=== PATIENT | male | born 1985 | race Asian ===

== ENCOUNTER 2025-03-18 07:17 | Emergency (ER) | payer OTHER, SELFPAY ==
[2025-03-18 07:18] VITALS: BMI 31.2
[2025-03-18 07:33] VITALS: BP 176/120; BP 182/120; PULSE 89; RESP 18; TEMP 37; O2SAT 98
--- NOTE | 2025-03-18 07:45 | XR_ITS ---
Examination: Duplex scan of the lower extremity, unilateral right complete Date and time of exam: March 18, 2025, 0755 hrs. Indications: Right ankle swelling and pain beginning one week ago Technique: Duplex scan of the extremity veins using B-mode/grayscale imaging and Doppler spectral analysis and color flow Attention is directed to internal echogenicity, compression and augmentation involving these veins, color flow assessment, spectral analysis Findings: Major deep venous structures in the extremity demonstrate normal course and caliber. There is no evidence of deep vein thrombosis. Normal color flow and spectral analysis Impression: Negative for DVT..
--- NOTE | 2025-03-18 07:45 | XR_ITS ---
Examination: Foot, right, 3 views Technique: AP, oblique, lateral views foot, 3 views Date and time of exam: March 18, 2025 0757 hours INDICATIONS: Onset right foot pain today FINDINGS: No fracture or dislocation. No foreign body IMPRESSION: No fracture or dislocation
--- NOTE | 2025-03-18 07:45 | XR_ITS ---
EXAMINATION: Ankle, right 3 views . Technique: Ankle AP, oblique, lateral 3 views Date and time of exam: March 18, 2025 0757 hours INDICATIONS: Ankle pain beginning one week ago. FINDINGS: No fracture or dislocation. No foreign body IMPRESSION: No fracture dislocation
[2025-03-18 08:02] VITALS: BP 182/120; PULSE 90
[2025-03-18] MEDS: KETOROLAC INJ 30 MG/ML VIAL IM (08:03)
--- NOTE | 2025-03-18 09:29 | PC.NURSE ---
MESSAGE LEFT FOR DR. NDIAYE TO READ XRAY
[2025-03-18 11:02] VITALS: BP 163/100; PULSE 94; RESP 18; TEMP 36.7; O2SAT 95
--- NOTE | 2025-03-18 11:02 | PD.EDANKLE ---
Lower Extremity Injury RME/HPI General Chief Complaint: Ankle/Foot Injury Stated Complaint: PAIN RIGHT ANKLE x 1 WEEK, TOLD HAS TENDONITIS Time Seen by Provider: 03/18/25 07:23 Arrival date/time: 03/18/25 07:17 40-year-old male with medical history significant for hypertension presents to the emergency department today for complaints of right foot and right lower calf pain patient for symptoms ongoing x 1 week Limitations: no limitations Related Data Previous Rx's ?Medication ?Instructions ?Recorded acetaminophen 650 mg 650 mg PO Q8H PRN fever or pain 07/27/19 tablet,extended release #30 tabs ibuprofen 600 mg tablet 600 mg PO Q8H PRN fever or pain 07/27/19 #30 tabs hydrocodone 5 mg-acetaminophen 325 1 tab PO BID PRN pain #10 tabs 03/18/25 mg tablet Allergies Allergy/AdvReac Type Severity Reaction Status Date / Time No Known Allergies Allergy Verified 03/18/25 07:20 Review of Systems Review of Systems Systems Reviewed: All systems reviewed, normal except as documented Constitutional Constitutional: Reports system reviewed and no additional complaints, except as documented, Denies fever(s) and Denies headache(s) Eyes Eyes: Reports system reviewed and no additional complaints, except as documented and Denies blurry vision ENT Ears, Nose, Mouth, and Throat: Reports system reviewed and no additional complaints, except as documented, Denies headache(s), Denies nasal congestion and Denies nasal discharge Cardiovascular Cardiovascular: Reports system reviewed and no additional complaints, except as documented, Denies chest pain and Denies dyspnea Respiratory Respiratory: Reports system reviewed and no additional complaints, except as documented, Denies chest congestion, Denies cough and Denies dyspnea Gastrointestinal Gastrointestinal: Reports system reviewed and no additional complaints, except as documented and Denies abdominal pain Musculoskeletal Musculoskeletal: Reports system reviewed and no additional complaints, except as documented, Denies deformity, Denies numbness and Denies tingling Integumentary/Breasts Skin/Breast: Reports system reviewed and no additional complaints, except as documented and Denies rash Neurologic Neurologic: Reports system reviewed and no additional complaints, except as documented, Reports as per HPI, Denies headache(s), Denies numbness and Denies tingling Past Medical History Past Medical History CARDIAC: Negative Congestive Heart Failure RESPIRATORY: Negative Chronic Obstructive Pulmonary Disease (COPD) GENITOURINARY: Negative Renal Disease ENDOCRINE: Negative Diabetes Mellitus Type 1 or Diabetes Mellitus Type 2 Social History SMOKING STATUS: Never smoker ED Exam General Limitations: Present no limitations General appearance: Present alert and in no apparent distress Head Head exam: Present atraumatic, normocephalic and normal inspection Eye Eye exam: Present normal appearance, PERRL and EOMI; Absent conjunctival injection ENT ENT exam: Present normal exam, normal oropharynx and mucous membranes moist Neck Neck exam: Present normal inspection, full ROM and trachea midline Chest Chest inspection: Present normal inspection and symmetric chest wall rise Respiratory Respiratory exam: Present normal lung sounds bilaterally Cardiovascular Cardiovascular exam: Present regular rate, normal rhythm and normal heart sounds Abdominal Exam Abdominal exam: Present soft and normal bowel sounds Extremities Exam Extremities exam: Present full ROM, tenderness and normal capillary refill Back Exam Back exam: Present normal inspection and full ROM Neurological Exam Neurological exam: Present alert, oriented X3, CN II-XII intact, normal gait and reflexes normal; Absent motor sensory deficit Psychiatric Psychiatric exam: Present normal affect and normal mood Skin Skin exam: Present warm, dry, intact and normal color Course Quality Measures none Orders Category Date Time Status US venous doppler LE RT Stat Exams 03/18/25 07:45 Completed XR ankle comp RT min 3V Stat Exams 03/18/25 07:45 Completed XR foot comp RT min 3V Stat Exams 03/18/25 07:45 Completed Ketorolac Inj [Toradol Inj] Med 03/18/25 07:47 Discontinued 30 mg IM X1 ONE NIFEdipine [Procardia] Med 03/18/25 07:45 Discontinued 20 mg PO X1 ONE Vital Signs Vital signs: Vital Signs Temperature 98.6 F 03/18/25 07:33 Pulse Rate 89 03/18/25 07:33 Respiratory Rate 18 03/18/25 07:33 Blood Pressure 182/120 H 03/18/25 07:33 Pulse Oximetry (%) 98 03/18/25 07:33 Oxygen Delivery Method Room Air 03/18/25 07:33 O2 saturation 98% room air with normal limits Extremity Injury, Lower MDM Narrative MDM Narrative:: 40-year-old male with medical history significant for hypertension presents to the emergency department today for complaints of right foot and right lower calf pain patient for symptoms ongoing x 1 week On exam patient is noted to be hypertensive but reports no chest pain shortness breath headache dizziness or weakness As patient is noted be hypertensive patient was given a dose of medication here which improved his blood pressure significantly Patient given pain medication discharged home with pain medication Explained to the patient if symptoms persist or worsen he may need an outpatient MRI Patient data External records reviewed:: [facility] previous records Clinical information provided by:: patient Social determinants that could affect healthcare access:: none Patient has the following chronic illnesses:: See history How is presenting disease/condition affected by chronic disease/condition?: exacerbated by Evaluation data The following diagnostics were reviewed and interpreted by me:: radiology exam(s) Lab and/or radiology exams considered but not ordered:: Radiology obtain Interpretation Summary: Reviewed by me Medications / Prescriptions Medications or Prescriptions considered but not ordered:: Given Medication administrations:: Medication Administration History Discontinued Medications Ketorolac Tromethamine (Ketorolac Inj 30 Mg/Ml Vial) 30 mg IM X1 ONE Stop: 03/18/25 07:48 Last Admin: 03/18/25 08:03 Dose: 30 mg Documented By: SERENITY Nifedipine (Nifedipine 10 Mg Capsule) 20 mg PO X1 ONE Stop: 03/18/25 07:46 Last Admin: 03/18/25 08:02 Dose: 20 mg Documented By: SERENITY Given Consultations Consultation(s) initiated? (list below): No Diagnosis Extremity Injury, Lower Differential Diagnosis: ankle sprain and strain, ankle fracture and other Most likely diagnosis given after review of the tests above:: Achilles tendinitis Admission Indicated Admission indicated?: not indicated Admission Request Was there a request for admission?: No Disposition Plan Disposition Plan: Discharge Discharge Attestation Discharge Attestation: The patient and all family members were given an opportunity to ask questions and understood the discharge instructions. Discharge instructions specifically effects, indications for sooner follow up or return to the emergency department, and the expected course of current diagnosis. Patient condition: Stable Discharge Plan Plan Patient Disposition: HOME (Self Care) Discharge Disposition comment: Stable Prescriptions/Referrals Prescriptions/Med Rec: New hydrocodone-acetaminophen 5-325 mg tablet 1 tab PO BID MDD 10 PRN (Reason: pain) Qty: 10 0RF No Action acetaminophen 650 mg tablet extended release 650 mg PO Q8H PRN (Reason: fever or pain) Qty: 30 0RF Rx Instructions: swallow whole; do not crush, chew, break, dissolve, cut, or open ibuprofen 600 mg tablet 600 mg PO Q8H PRN (Reason: fever or pain) Qty: 30 0RF Rx Instructions: prn pain / fever Referrals: Phu Severino MD [Primary Care Provider, Family Practice] - 03/19/25 Problem List Clinical Impression: Achilles tendinitis, right leg Patient/Caregiver Discharge Instructions Education Materials: ED Tendonitis Additional Instructions: Please follow up with your primary care doctor in the next 24-48hrs for any worsening symptoms return here immediately Print Language: Irish Stand Alone Forms: Maria Teresa Award Info., Work/School Release, Patient Portal Info Letter PA/[employer] Supervising Physician PA/[employer] Supervising Physician: Dr. avendaño
== END 2025-03-18 11:11 | disposition home or self-care (01) ==
PROVIDERS: Emergency Provider Family Medicine; PCP Family Medicine
DX: M76.61 Achilles tendinitis, right leg (principal); I10 Essential (primary) hypertension
CPT/HCPCS: 73610; 73630; 93971; 96372; 99284; J1885; A9270